=== PATIENT | female | born 1940 | race Caucasian/White ===

== ENCOUNTER 2017-06-06 17:40 | Emergency (ER) | payer OTHER ==
[2017-06-06 17:46] VITALS: BP 156/82; PULSE 85; TEMP 98; BMI 27.1
--- NOTE | 2017-06-06 17:52 | PDOC ---
History of Present Illness - History of Present Illness Initial Comments: 06/06/17 17:51 Ms. Ortiz is a 77 yo female with a significant past medical history of DM, hypothyroid disorder, and GERD who presents to the emergency department complaining of a fish bone stuck in her throat since 1529. Per history she was eating fish soup and swallowed a fish bone. The patient denies chest pain, shortness of breath, headache and dizziness. Denies fever, chills, nausea, vomit, diarrhea and constipation. Denies dysuria, frequency, urgency and hematuria. Allergies: Past surgical history: Appendectomy, cholecystectomy, c-sections <Benedict Mckenna - Last Filed: 06/06/17 19:17> <Pal Melo - Last Filed: 06/06/17 20:30> - General Chief Complaint: Foreign Body (FB) Stated Complaint: FISH BONE STUCK IN THROAT Time Seen by Provider: 06/06/17 17:51 Past History - Past Medical History Diabetes: Yes (IDDM) Thyroid Disease: Yes Other medical history: SCIATICA - Surgical History Abdominal Surgery: Yes (ABD HERNIA) Appendectomy: Yes Cholecystectomy: Yes - Suicide/Smoking/Psychosocial Hx Smoking History: Never smoked Information on smoking cessation initiated: No Hx Alcohol Use: No Drug/Substance Use Hx: No Substance Use Type: None <Benedict Mckenna - Last Filed: 06/06/17 19:17> <Pal Melo - Last Filed: 06/06/17 20:30> - Past Medical History Allergies/Adverse Reactions: Allergies Allergy/AdvReac Type Severity Reaction Status Date / Time Penicillins Allergy Verified 06/06/17 17:42 Review of Systems - Review of Systems Comments:: 06/06/17 17:51 GENERAL/CONSTITUTIONAL: No fever or chills. No weakness. HEAD, EYES, EARS, NOSE AND THROAT: +Current sore throat with some blood spit up in the parking lot. No change in vision. No ear pain or discharge. CARDIOVASCULAR: No chest pain or shortness of breath RESPIRATORY: No cough, wheezing, or hemoptysis. GASTROINTESTINAL: No nausea, vomiting, diarrhea or constipation. GENITOURINARY: No dysuria, frequency, or change in urination. MUSCULOSKELETAL: No joint or muscle swelling or pain. No neck or back pain. SKIN: No rash NEUROLOGIC: No headache, vertigo, loss of consciousness, or change in strength/ sensation. ENDOCRINE: No increased thirst. No abnormal weight change HEMATOLOGIC/LYMPHATIC: No anemia, easy bleeding, or history of blood clots. ALLERGIC/IMMUNOLOGIC: No hives or skin allergy. <Benedict Mckenna - Last Filed: 06/06/17 19:17> *Physical Exam - Vital Signs Last Vital Signs Temp Pulse Resp BP Pulse Ox 98.0 F 85 18 156/82 100 06/06/17 17:43 06/06/17 17:43 06/06/17 17:43 06/06/17 17:43 06/06/17 17:43 - Physical Exam Comments: 06/06/17 17:51 GENERAL: Awake, alert, and fully oriented, in no acute distress HEAD: No signs of trauma, normocephalic, atraumatic EYES: PERRLA, EOMI, sclera anicteric, conjunctiva clear ENT: Auricles normal inspection, hearing grossly normal, nares patent, oropharynx clear without exudates. Moist mucosa NECK: Normal ROM, supple, no lymphadenopathy, JVD, or masses LUNGS: No distress, speaks full sentences, clear to auscultation bilaterally HEART: Regular rate and rhythm, normal S1 and S2, no murmurs, rubs or gallops, peripheral pulses normal and equal bilaterally. ABDOMEN: Soft, nontender, normoactive bowel sounds. No guarding, no rebound. No masses EXTREMITIES: Normal inspection, Normal range of motion, no edema. No clubbing or cyanosis. NEUROLOGICAL: Cranial nerves II through XII grossly intact. Normal speech, normal gait, no focal sensorimotor deficits SKIN: Warm, Dry, normal turgor, no rashes or lesions noted. <Benedict Mckenna - Last Filed: 06/06/17 19:17> - Vital Signs Last Vital Signs Temp Pulse Resp BP Pulse Ox 98.0 F 85 18 156/82 100 06/06/17 17:43 06/06/17 17:43 06/06/17 17:43 06/06/17 17:43 06/06/17 17:43 <Pal Melo - Last Filed: 06/06/17 20:30> ED Treatment Course - Medications Given in the ED: ED Medications Discontinued Medications Generic Name Dose Route Start Last Admin Trade Name Tomasz PRN Reason Stop Dose Admin Lidocaine HCl 60 ml 06/06/17 18:08 06/06/17 18:16 Xylocaine 2% Viscous Oral - MM 06/06/17 18:09 30 ml ONCE ONE Administration <Pal Melo - Last Filed: 06/06/17 20:30> Medical Decision Making - Medical Decision Making 06/06/17 18:40 Patient presents with acute pain from "fish bone" in throat. Oral lidocaine ordered for symptomatic relief. CT neck ordered to confirm foreign body. EKG/ CXR ordered as well in preparation for possible surgery. 06/06/17 19:18 Pt. signed out to Dr. Melo for further work-up. <Benedict Mckenna - Last Filed: 06/06/17 19:17> *DC/Admit/Observation/Transfer <Benedict Mckenna - Last Filed: 06/06/17 19:17> - Discharge Dispostion Admit: Yes <Pal Melo - Last Filed: 06/06/17 20:30> Diagnosis at time of Disposition: Foreign body - Referrals Referrals: Celio Domingo MD [Primary Care Provider] -
[2017-06-06] MEDS ORDERED: LIDOCAINE VISCOUS 2% ORAL/TOP 20 ML UNIT-DOSE CUP MM ONE (18:08)
[2017-06-06] MEDS ORDERED: LIDOCAINE VISCOUS 2% ORAL/TOP 20 ML UNIT-DOSE CUP ONE (18:12)
--- NOTE | 2017-06-06 19:23 | PDOC ---
*Physical Exam - Vital Signs Last Vital Signs Temp Pulse Resp BP Pulse Ox 98.0 F 85 18 156/82 100 06/06/17 17:43 06/06/17 17:43 06/06/17 17:43 06/06/17 17:43 06/06/17 17:43 ED Treatment Course - LABORATORY CBC & Chemistry Diagram: 06/06/17 20:30 - Medications Given in the ED: ED Medications Discontinued Medications Generic Name Dose Route Start Last Admin Trade Name Tomasz PRN Reason Stop Dose Admin Lidocaine HCl 60 ml 06/06/17 18:08 06/06/17 18:16 Xylocaine 2% Viscous Oral - MM 06/06/17 18:09 30 ml ONCE ONE Administration Medical Decision Making - Medical Decision Making 06/06/17 19:22 7 yo female with a significant past medical history of DM, hypothyroid disorder , and GERD who presents to the emergency department complaining of a fish bone stuck. Pending CT soft tissue neck 06/06/17 19:30 CT soft tissue neck- 1 cm linear like density extending from left lateral aspect of the epiglottis into the left lateral wall of the hypopharynx between the level of the vallecula and the piriform sinus. 06/06/17 20:[address] Patiño. Patient needs to go to OR. 06/06/17 20:14 Call placed to OR to set up room 06/06/17 21:38 Dr. Escamilla performed procedure in ED. Patient tolerated removal of fishbone well. Will PO challenge the patient and if patient tolerates, she is stable for d/c 06/06/17 21:49 Patient tolerated food. Will d/c patient home. *DC/Admit/Observation/Transfer Diagnosis at time of Disposition: Foreign body Foreign body in throat Qualifiers: Encounter type: initial encounter Qualified Code(s): T17.208A - Unspecified foreign body in pharynx causing other injury, initial encounter - Discharge Dispostion Disposition: HOME Condition at time of disposition: Stable Admit: No - Referrals Referrals: Celio Domingo MD [Primary Care Provider] - - Patient Instructions Printed Discharge Instructions: DI for Foreign Body, Swallowed-Adult Additional Instructions: Follow up with your primary care provider within 1 week. If you have chest pain, shortness of breath, or any new/worsening symptoms please come back to the hospital immediately. - Post Discharge Activity
--- NOTE | 2017-06-06 21:26 | CON.ENT ---
Consult Consult Specialty:: ENT Reason for Consultation:: foreign body throat - History of Present Illness Chief Complaint: sore throat History of Present Illness: Was eating fish this afternoon for lunch, developed stabbing pain in left throat. Since then, hard to swallow. Spitting. CT Neck done in ER showing radioopaque FB in vallecula. - History Source History Provided By: Patient Limitations to Obtaining History: No Limitations - Past Medical History Endocrine: Yes: Diabetes Mellitus, Hypothyroidism - Alcohol/Substance Use Hx Alcohol Use: No - Smoking History Smoking history: Never smoked Home Medications - Allergies Allergies/Adverse Reactions: Allergies Allergy/AdvReac Type Severity Reaction Status Date / Time Penicillins Allergy Verified 06/06/17 17:42 - Home Medications Home Medications: Ambulatory Orders NK [No Known Home Medication] 06/06/17 Review of Systems - Review of Systems HENT: reports: Difficult Swallowing Physical Exam-ENT Vital Signs: Vital Signs Temperature 98.0 F 06/06/17 17:43 Pulse Rate 85 06/06/17 17:43 Respiratory Rate 18 06/06/17 17:43 Blood Pressure 156/82 06/06/17 17:43 O2 Sat by Pulse Oximetry (%) 100 06/06/17 17:43 Constitutional: Yes: Well Nourished, Anxious, Other (spitting every ~2 minutes into a bag. clear saliva. no stridor/stertor. nml voice.) Head: Yes: WNL Face: Yes: WNL Eyes: Yes: WNL Nose: Yes: WNL Oral/Pharynx: Yes: Other (edentulous. FOM soft, flat. Tonsils 1+/recessed. No FB seen. Widely patent) Outer Ear: Yes: WNL Ear Canal: Yes: Cerumen Neck: Yes: Supple, Other (no edema, swelling, or discoloration) Neurological: Yes: Other (CN3-7,11,12 intact, symmetrical) Imaging - Results Cat Scan: Report Reviewed, Image Reviewed Other: Other (1. Flexible Fiberoptic Laryngoscopy 2. Removal FB Throat Explained rbla to patient, all questions answered, consent obtained. Pt and [id number] aware will try in ER, and if unable to retrieve FB then will go to OR. FFL Findings: 1. Unremarkable N/P. 2. There is a thick fishbone in valleculae. No gross lesions/masses in pyriforms. 3. TVCs mobile, symmetrical. Removal of FB: Time out peformed. With Flexible Fiberoptic Laryngoscope in Position to assist in removal, sourcing assistant retracted tongue with 4x4 gauze. A curved samira clamp was inserted through the oral cavity to oropharynx. The FB was grasped and removed completely. Immediate relief noted by patient. She felt much better and was able to swallow, gave MD cummings. FFL ensured no residual FB seen.) Problem List - Problems (1) Foreign body Code(s): [id number] - (2) Foreign body in throat Assessment/Plan: Fishbone in vallecula since this afternoon. Removed successfully. Patient very pleased. As long as tolerating PO's and feels well, okay to discharge Checked on patient twenty minutes after removal, doing well without complaints. No evidence of vascular damage. *Of note, pt refuses blood products due to catholic convictions. Refusal signed on consent form after disc r/b/l/a of the procedure. She is aware that potentially life-saving blood products will be withheld if needed, which could result in . Pt illiterate but was explained in detail in kosovan. daughter- in-law witnesses* Code(s): T17.208A - UNSP FOREIGN BODY IN PHARYNX CAUSING OTH INJURY, INIT ENCNTR Qualifiers: Encounter type: initial encounter Qualified Code(s): T17.208A - Unspecified foreign body in pharynx causing other injury, initial encounter; T17.208A - Unspecified foreign body in pharynx causing other injury, initial encounter (3) Dysphagia Code(s): R13.10 - DYSPHAGIA, UNSPECIFIED
--- NOTE | 2017-06-07 22:26 | EKG ---
Test Reason : Blood Pressure : / mmHG Vent. Rate : 081 BPM Atrial Rate : 081 BPM P-R Int : 140 ms QRS Dur : 088 ms QT Int : 366 ms P-R-T Axes : 035 002 050 degrees QTc Int : 425 ms NORMAL SINUS RHYTHM BASELINE ARTIFACT NONSPECIFIC T WAVE ABNORMALITY NO PREVIOUS ECGS AVAILABLE REPEAT EKG IF CLINICALLY INDICATED Confirmed by HUGO BREAUX MD ([id number]) on 06/07/2017 10:26:03 PM Referred By: Confirmed By:HUGO BREAUX MD
== END 2017-06-06 22:21 | disposition home or self-care (01) ==
LOC: JER 17:40
DX: T17.228A Food in pharynx causing other injury, initial encounter (principal); E11.9 Type 2 diabetes mellitus without complications; E07.9 Disorder of thyroid, unspecified; K21.9 Gastro-esophageal reflux disease without esophagitis
CPT/HCPCS: 36415; 70490-TC; 71010-TC; 93005; 93010; 99283-25

== ENCOUNTER 2020-04-06 17:09 | Inpatient (IN) | payer MEDICARE, OTHER ==
[2020-04-06 17:18] VITALS: BMI 25.0
--- NOTE | 2020-04-06 17:35 | PDOC ---
History of Present Illness - General Chief Complaint: Chest Pain Stated Complaint: CHEST PAIN Time Seen by Provider: 04/06/20 17:34 - History of Present Illness Initial Comments: 04/06/20 19:34 79 y/o F hx of diabetes (insulin dependent), htn, hypothyroidism presents to the ED with 2 days of chest pain. Pt reports pain is right sided and 6/10 in severity. Intermittent throught out the day.Pain is worse when she lies down, but there has been no recent illness. pt has no associated nausea, vomiting, diaphoresis or shortness of breath. Of note, pt fell 1 wk ago and has had right sided shoulder,neck and headache since then. Headache has been persistent for the last week. pain occasionally relieved with tylenol, but always returns. pt was ambulatory after fall incident and was not evaluated at the hospital at that time. PMHx: as noted above ROS: as noted SHx: Denies Etoh, IVDA, tobacco use Allergies: NKDA ROS: GENERAL/CONSTITUTIONAL: No fever or chills. No weakness. HEAD, EYES, EARS, NOSE AND THROAT: No change in vision. No ear pain or discharge. No sore throat. CARDIOVASCULAR: No chest pain or shortness of breath RESPIRATORY: No cough, wheezing, or hemoptysis. GASTROINTESTINAL: No nausea, vomiting, diarrhea or constipation. GENITOURINARY: No dysuria, frequency, or change in urination. MUSCULOSKELETAL: No joint or muscle swelling or pain. No neck or back pain. SKIN: No rash NEUROLOGIC: No headache, vertigo, loss of consciousness, or change in strength/sensation. ENDOCRINE: No increased thirst. No abnormal weight change HEMATOLOGIC/LYMPHATIC: No anemia, easy bleeding, or history of blood clots. ALLERGIC/IMMUNOLOGIC: No hives or skin allergy. PE: GENERAL: Awake, alert, and fully oriented, in no acute distress HEAD: No signs of trauma, normocephalic, atraumatic EYES: PERRLA, EOMI, sclera anicteric, conjunctiva clear ENT: Auricles normal inspection, hearing grossly normal, nares patent, orophary nx clear without exudates. Moist mucosa NECK: Normal ROM, supple, no lymphadenopathy, JVD, or masses LUNGS: No distress, speaks full sentences, clear to auscultation bilaterally HEART: Regular rate and rhythm, normal S1 and S2, no murmurs, rubs or gallops, peripheral pulses normal and equal bilaterally. ABDOMEN: Soft, nontender, normoactive bowel sounds. No guarding, no rebound. No masses EXTREMITIES : Normal inspection, Normal range of motion, no edema. No clubbing or cyanosis NEUROLOGICAL: Cranial nerves II through XII grossly intact. Normal speech, normal gait, no focal sensorimotor deficits SKIN: Warm, Dry, normal turgor, no rashes or lesions noted 04/06/20 19:40 Past History - Medical History Allergies/Adverse Reactions: Allergies Allergy/AdvReac Type Severity Reaction Status Date / Time Penicillins Allergy Verified 04/06/20 17:18 Home Medications: Ambulatory Orders Ergocalciferol [Vitamin D2] 50,000 unit PO ONCE 04/06/20 Gabapentin 300 mg PO DAILY 04/06/20 Glimepiride 4 mg PO DAILY 04/06/20 Levothyroxine [Synthroid -] 50 mcg PO DAILY 04/06/20 Losartan Potassium 25 mg PO DAILY 04/06/20 Metformin HCl [Glucophage] 1,000 mg PO BID 04/06/20 Simvastatin 20 mg PO DAILY 04/06/20 COPD: No Diabetes: Yes (IDDM) HTN: Yes Thyroid Disease: Yes - Surgical History Abdominal Surgery: Yes (ABD HERNIA) Appendectomy: Yes Cholecystectomy: Yes - Psycho-Social/Smoking History Smoking History: Never smoked - Substance Abuse Hx (Audit-C & DAST Scrn) How often the patient has a drink containing alcohol: Never Score: In Men: 4 or > Positive; In Women: 3 or > Positive: 0 Screen Result (Pos requires Nsg. Audit-10AR): Negative *Physical Exam - Vital Signs Last Vital Signs Temp Pulse Resp BP Pulse Ox 98 F 73 18 143/67 99 04/06/20 17:16 04/06/20 17:16 04/06/20 17:16 04/06/20 17:16 04/06/20 17:16 Heart Score/ECG Review - History History: Slightly suspicious - Electrocardiogram EKG: Non specific repolarization disturbance - Age Age: >/= 65 - Risk Factors Risk Factors Heart Score: Yes Hx Hypercholesterolemia, Yes Hx Hypertension, Yes Hx Diabetes Based on the list above the patient has:: >/=3 risk factors or Hx atherosclerotic disease - Troponin Troponin: </= normal limit - Score Heart Score - Total: 5 ED Treatment Course - LABORATORY CBC & Chemistry Diagram: 04/06/20 18:35 04/06/20 18:35 Medical Decision Making - Medical Decision Making 04/06/20 19:39 79 y/o F hx of diabetes (insulin dependent), htn, hypothyroidism presents to the ED with 2 days of chest pain. Pt reports pain is right sided and 6/10 in severity. ddx; acs, subdural hematoma, pnemonia, pericarditis.less likely p.e, pn 04/06/20 19:40 labs, ekg, chest x-ray heart score 5 04/06/20 19:42 EXAM: CT thoracic spine without contrast HISTORY:Fall. Rule out hematoma. COMPARISON: None. FINDINGS: Thoracic spine demonstrates normal alignment. Moderate degenerative changes noted. No acute thoracic spine fracture or dislocation. No visible hematoma. Evidence for prior granulomatous disease EXAM: CT head without contrast IMAGES: 220 DATE OF EXAM: 2020-04-06 18:58:54 REASON FOR EXAM: Fall COMPARISON: None. FINDINGS: There is cerebral atrophy. Chronic microvascular ischemic changes are noted. No acute intracranial hemorrhage or acute infarction. The visualized aspect of the paranasal sinuses and mastoid air cells are unremarkable. no acute fracture. EKG: NSR , normal qt , no st elevation. HIP x-rays FINDINGS: Right hip: No acute fracture or dislocation. Left hip: No acute fracture or dislocation. AP pelvis: No acute fracture or dislocation. Extensive vascular calcifications. chest x-ray Chronic lung changes. No acute cardiopulmonary disease. No pneumothorax or f racture. No radiopaque foreign body. 04/06/20 21:33 Discharge - Discharge Information Problems reviewed: Yes Clinical Impression/Diagnosis: Chest pain - Follow up/Referral - Patient Discharge Instructions - Post Discharge Activity
[2020-04-06] MEDS ORDERED: ASPIRIN 81 MG CHEWABLE TABLETS PO ONE ×2 (18:11→21:23)
[2020-04-06] MEDS ORDERED: ACETAMINOPHEN 1000 MG/100 ML VIAL (NON FORMULARY) IVPB ONE (18:11)
[2020-04-06] MEDS ORDERED: ASPIRIN 81 MG CHEWABLE TABLETS ONE ×2 (18:32→21:55)
[2020-04-06] MEDS ORDERED: ACETAMINOPHEN INJECTION 100 ML IVPB ONE (18:32)
--- NOTE | 2020-04-06 18:39 | PDOC ---
Attending Attestation - Resident Resident Name: PamAdrienneJesus Yepez - HPI HPI: 04/06/20 18:50 PT presents to the ED complaining of a two day history of substernal chest pain made worse by lying flat and relieved by sitting. Denies shortness of breath, nausea or vomiting. Also complaining of mild frontal headache that has been persistent since mechanical fall one week ago. Denies LOC at the time of the fall. Raven has been ambualtory and conducting her usual activities since the fall. - Physicial Exam PE: 04/06/20 19:19 agree with resident exam. PAteint is alert and in NAD. CV: rrr no m/r/g Pulm: cTA b/l abdomen: soft, non tender, non distended without guarding or rebound. - Medical Decision Making 04/06/20 19:19 Pt presents to the eD complaining of chest pain that has been intermittent for t wo days. EKG shows no evidence of ischemia. Differential of cP includes ACS, muscular pain, less likely pericarditis or rib fx. Will check labs and admit to medicine for r/o ACS. Will check CT head to rule out intracranial bleed. Discharge - Discharge Information Problems reviewed: Yes Clinical Impression/Diagnosis: Chest pain Condition: Stable Disposition: HOME - Admission Yes - Follow up/Referral - Patient Discharge Instructions - Post Discharge Activity
[2020-04-06 18:52] LABS: INR 0.97 (0.83-1.09); PROTHROMBIN TIME (PATIENT) 11.4 SEC (9.7-13.0)
[2020-04-06 18:53] LABS: EOS % 3.4 % (0-4.5); HEMATOCRIT 34.8 % (32.4-45.2); HEMOGLOBIN 11.7 GM/dL (10.7-15.3); LYMPH % 27.9 % (8-40); MCHC 33.7 g/dl (32.0-36.0); MEAN CELL VOLUME 85.9 fl (80-96); MEAN PLT VOLUME 10.1 fl (7.5-11.1); MONO % 6.7 % (3.8-10.2); RBC 4.05 M/mm3 (3.60-5.2); RDW 13.2 % (11.6-15.6); WHITE BLOOD COUNT 9.7 K/mm3 (4.0-10.0)
[2020-04-06 18:55] LABS: ACTIVATED PTT 30.2 SECONDS (25.2-36.5)
[2020-04-06 19:23] LABS: ALBUMIN 3.9 g/dl (3.4-5.0); ALK PHOS 107 U/L (45-117); ANION GAP 7 MMOL/L (8-16); BILIRUBIN,TOTAL 0.6 mg/dL (0.2-1); BLOOD UREA NITROGEN 14.7 mg/dL (7-18); CALCIUM 8.6 mg/dL (8.5-10.1); CHLORIDE 100 mmol/L (98-107); CO2 29 mmol/L (21-32); CREATININE 0.7 mg/dL (0.55-1.3); GLUCOSE,RANDOM 70 mg/dL (74-106); POTASSIUM 4.7 mmol/L (3.5-5.1); SGOT/AST 27 U/L (15-37); SGPT/ALT 32 U/L (13-61); SODIUM 136 mmol/L (136-145); TOT PROT 7.2 g/dl (6.4-8.2)
[2020-04-06 19:29] LABS: PLATELET COUNT 129 K/MM3 (134-434)
--- NOTE | 2020-04-06 21:22 | HP ---
CHIEF COMPLAINT: PCP: HISTORY OF PRESENT ILLNESS: 79 y/o F hx of diabetes (insulin dependent), htn, hypothyroidism, hl presents to the ED with 2 days of chest pain. Pain is intermittent in nature, radiates on her right neck and right chest region, goes o he back at times. No associated vomiting but had some nausea erlier this am. Currently pain is better after getting meds in the ed. Of note, pt reports having a fall last week-- daughter states she tripped over something while walking and fell onto her right side. No syncope/loc. No chest pain, shortness of breath or palpitations prior to the fall Pt denies any pleuritic pain currently PMHx: as noted above ROS: as noted SHx: Denies Etoh, IVDA, tobacco use Allergies: NKDA ER course was notable for: (1) pain to the right chest region (2) (3) Recent Travel: Denies PAST MEDICAL HISTORY: htn, hypothyroidism, iddm, hl PAST SURGICAL HISTORY: Denies Social History: Smoking: Denies Alcohol: Denies Drugs: Denies Allergies Penicillins Allergy (Verified 04/06/20 17:18) HOME MEDICATIONS: Home Medications Medication Instructions Recorded Ergocalciferol [Vitamin D2] 50,000 unit PO ONCE 04/06/20 Gabapentin 300 mg PO DAILY 04/06/20 Glimepiride 4 mg PO DAILY 04/06/20 Levothyroxine [Synthroid -] 50 mcg PO DAILY 04/06/20 Losartan Potassium 25 mg PO DAILY 04/06/20 Metformin HCl [Glucophage] 1,000 mg PO BID 04/06/20 Simvastatin 20 mg PO DAILY 04/06/20 REVIEW OF SYSTEMS CONSTITUTIONAL: Absent: fever, chills, diaphoresis, generalized weakness, malaise, loss of appetite, weight change HEENT: Absent: rhinorrhea, nasal congestion, throat pain, throat swelling, difficulty swallowing, mouth swelling, ear pain, eye pain, visual changes CARDIOVASCULAR: POS RIGHT chest pain, syncope, palpitations, irregular heart rate, lightheadedness, peripheral edema RESPIRATORY: Absent: cough, shortness of breath, dyspnea with exertion, orthopnea, wheezing, stridor, hemoptysis GASTROINTESTINAL: Absent: abdominal pain, abdominal distension, nausea, vomiting, diarrhea, constipation, melena, hematochezia GENITOURINARY: Absent: dysuria, frequency, urgency, hesitancy, hematuria, flank pain, genital pain MUSCULOSKELETAL: Absent: myalgia, arthralgia, joint swelling, back pain, POS RIGHT SIDED neck pain SKIN: Absent: rash, itching, pallor HEMATOLOGIC/IMMUNOLOGIC: Absent: easy bleeding, easy bruising, lymphadenopathy, frequent infections ENDOCRINE: Absent: unexplained weight gain, unexplained weight loss, heat intolerance, cold intolerance NEUROLOGIC: Absent: headache, focal weakness or paresthesias, dizziness, unsteady gait, seizure, mental status changes, bladder or bowel incontinence PSYCHIATRIC: Absent: anxiety, depression, suicidal or homicidal ideation, hallucinations. PHYSICAL EXAMINATION Vital Signs - 24 hr 04/06/20 17:16 Temperature 98 F Pulse Rate 73 Respiratory 18 Rate Blood Pressure 143/67 O2 Sat by Pulse 99 Oximetry (%) GENERAL: Awake, alert, and fully oriented, in no acute distress. HEAD: Normal with no signs of trauma. EYES: extraocular movements intact, sclera anicteric, conjunctiva clear. No lid lag. EARS, NOSE, THROAT: Ears normal, nares patent, oropharynx clear without exudates. Moist mucous membranes. NECK: Normal range of motion, supple without lymphadenopathy, JVD, or masses. POS RIGHT NECK PAIN TO PALPATION LUNGS: Breath sounds equal, clear to auscultation bilaterally. No wheezes, and no crackles. No accessory muscle use. HEART: Regular rate and rhythm, normal S1 and S2 without murmur, rub or gallop. ABDOMEN: Soft, nontender, not distended, normoactive bowel sounds, no guarding, no rebound, no masses. No hepatomegaly or splenomegaly. MUSCULOSKELETAL: Normal range of motion at all joints. No bony deformities or tenderness. No CVA tenderness. POS TENDERNESS TO PALPATION RIGHT CHEST REGION UPPER EXTREMITIES: 2+ pulses, warm, well-perfused. No cyanosis. No clubbing. No peripheral edema. LOWER EXTREMITIES: 2+ pulses, warm, well-perfused. No calf tenderness. No peripheral edema. NEUROLOGICAL: Cranial nerves II-XII intact. Normal speech. Normal gait. PSYCHIATRIC: Cooperative. Good eye contact. Appropriate mood and affect. SKIN: Warm, dry, normal turgor, no rashes or lesions noted, normal capillary refill. Laboratory Results - last 24 hr 04/06/20 04/06/20 04/06/20 18:35 18:35 18:35 WBC 9.7 RBC 4.05 Hgb 11.7 Hct 34.8 MCV 85.9 MCH 29.0 MCHC 33.7 RDW 13.2 Plt Count 129 L MPV 10.1 Absolute Neuts (auto) 5.5 Neutrophils % 57.0 Lymphocytes % 27.9 Monocytes % 6.7 Eosinophils % 3.4 Basophils % 5.0 H Nucleated RBC % 0 Platelet Comment PT with INR 11.40 INR 0.97 PTT (Actin FS) 30.2 Sodium 136 Potassium 4.7 Chloride 100 Carbon Dioxide 29 Anion Gap 7 L BUN 14.7 Creatinine 0.7 Est GFR (CKD-EPI)AfAm 96.18 Est GFR (CKD-EPI)NonAf 82.99 Random Glucose 70 L Calcium 8.6 Total Bilirubin 0.6 AST 27 ALT 32 Alkaline Phosphatase 107 Troponin I < 0.02 C-Reactive Protein < 0.3 Total Protein 7.2 Albumin 3.9 EKG: NSR@72BPM HEAD CT/ CERVICAL CT -- PENDING CXR: PENDING ASSESSMENT/PLAN: 79 Y/O FEMALE WITH THE ABOVE MED HX ADMITTED WITH CHEST PAIN *CHEST PAIN - HAS MULTIPLE RISK FACTORS FOR CAD PAIN COTNROL ADMIT TO TELE, RULE OUT ARRHYTHMIA CHECK CARDIAC ENZYMES S/P ASA IN ED, CONT TOMORROW, CONT STATIN AND BB ?MUSCULOSKELETAL? PAIN REPRODUCIBLE ON EXAM TODAY POSSIBLY FROM FALL IF NOT BETTER, CHECK 2D ECHO, RIB XRAYS *HTN - CONT LOSARTAN AND BB *IDDM - HOLD ORAL AGENTS, CONT ISS WITH BGMS CHECK HBA1C *HL - CONT STATIN, CHECK LIPIDS IN AM *DVT PROPHY SQ HEPARIN Family Medical History Family History: Denies Problem List - Problem (1) Chest pain Code(s): R07.9 - CHEST PAIN, UNSPECIFIED Visit type - Medication Review Med list reviewed for High Risk Meds patients 65 and older: Yes - Emergency Visit Emergency Visit: Yes Care time: The patient presented to the Emergency Department on the above date and was hospitalized for further evaluation of their emergent condition. - New Patient This patient is new to me today: Yes Date on this admission: 04/06/20 - Critical Care Critical Care patient: No
[2020-04-06] MEDS ORDERED: NITROGLYCERIN SUBLINGUAL 1/150 0.4 MG TAB SL PRN (21:23)
[2020-04-06] MEDS ORDERED: HEPARIN NA (PORCINE) 5,000 UNITS/ML 1ML VIAL ONE (21:55)
[2020-04-06] MEDS ORDERED: ATORVASTATIN CA 10 MG TABLET (FP) ONE (21:55)
[2020-04-06] MEDS ORDERED: PATIENT'S OWN MEDICATION (NON-FORMULARY) (Simvastatin [Simvastatin] 20 MG) PO SCH (22:00)
[2020-04-06] MEDS: HEPARIN NA (PORCINE) 5,000 UNITS/ML 1ML VIAL SQ SCH (22:07)
[2020-04-06] MEDS: ATORVASTATIN CA 10 MG TABLET (FP) PO SCH (22:07)
[2020-04-07] MEDS ORDERED: LEVOTHYROXINE NA 25 MCG TABLET (FP) ONE (06:46)
[2020-04-07] MEDS: LEVOTHYROXINE NA 50 MCG TABLET (FP) PO SCH (06:47)
[2020-04-07] MEDS ORDERED: LOSARTAN POTASSIUM 50 MG TABLET (FP) ONE (07:44)
[2020-04-07] MEDS ORDERED: GABAPENTIN 100 MG CAPSULE ONE (07:44)
[2020-04-07] MEDS ORDERED: ASPIRIN 325 MG ENTERIC COATED TABLET (FP) ONE (07:44)
[2020-04-07] MEDS ORDERED: HEPARIN NA (PORCINE) 5,000 UNITS/ML 1ML VIAL ONE (07:45)
[2020-04-07 07:47] LABS: EOS % 3.1 % (0-4.5); HEMATOCRIT 37.8 % (32.4-45.2); HEMOGLOBIN 12.7 GM/dL (10.7-15.3); LYMPH % 33.2 % (8-40); MCH 28.7 pg (25.7-33.7); MCHC 33.6 g/dl (32.0-36.0); MEAN CELL VOLUME 85.6 fl (80-96); MEAN PLT VOLUME 9.2 fl (7.5-11.1); MONO % 9.7 % (3.8-10.2); PLATELET COUNT 158 K/MM3 (134-434); RBC 4.42 M/mm3 (3.60-5.2); WHITE BLOOD COUNT 6.6 K/mm3 (4.0-10.0)
[2020-04-07 08:18] LABS: ANION GAP 5 MMOL/L (8-16); BLOOD UREA NITROGEN 12.9 mg/dL (7-18); CALCIUM 8.8 mg/dL (8.5-10.1); CHLORIDE 101 mmol/L (98-107); CHOLESTEROL 118 mg/dL (50-200); CO2 30 mmol/L (21-32); CREATININE 0.8 mg/dL (0.55-1.3); GLUCOSE,RANDOM 128 mg/dL (74-106); HDL CHOLESTEROL 51 mg/dL (40-60); LDL CHOLESTEROL (ONLY SJRH) 52 mg/dL (5-100); MAGNESIUM 2.4 mg/dL (1.8-2.4); PHOSPHOROUS 4.2 mg/dL (2.5-4.9); SODIUM 136 mmol/L (136-145); TRIGLYCERIDES 152 mg/dL (0-150)
--- NOTE | 2020-04-07 09:15 | EKG ---
Test Reason : Blood Pressure : / mmHG Vent. Rate : 072 BPM Atrial Rate : 072 BPM P-R Int : 154 ms QRS Dur : 088 ms QT Int : 382 ms P-R-T Axes : 055 014 053 degrees QTc Int : 418 ms NORMAL SINUS RHYTHM SEPTAL INFARCT , AGE UNDETERMINED ABNORMAL ECG WHEN COMPARED WITH ECG OF 06-JUN-2017 18:27, NO SIGNIFICANT CHANGE WAS FOUND Confirmed by Ritu Espino ([id number]) on 04/07/2020 9:15:17 AM Referred By: Confirmed By:Ritu Espino
[2020-04-07] MEDS: ASPIRIN 325 MG TABLET PO SCH (09:35)
[2020-04-07] MEDS: LOSARTAN POTASSIUM 25 MG TABLET PO SCH (09:37)
[2020-04-07] MEDS: GABAPENTIN 300 MG CAPSULE PO SCH (09:38)
[2020-04-07] MEDS: HEPARIN NA (PORCINE) 5,000 UNITS/ML 1ML VIAL SQ SCH ×2 (09:38→22:17)
[2020-04-07] MEDS ORDERED: LEVOTHYROXINE NA 50 MCG TABLET (FP) PO SCH (10:00)
[2020-04-07] MEDS ORDERED: SODIUM CHLORIDE 500 ML IV STA (12:13)
[2020-04-07] MEDS: INSULIN SLIDING SCALE (NOVOLOG) 1 VIAL SQ SCH ×3 (12:26→22:17)
--- NOTE | 2020-04-07 12:53 | PN ---
Teaching Attending Note Name of Resident: Krish Castillo ATTENDING PHYSICIAN STATEMENT I saw and evaluated the patient. I reviewed the resident's note and discussed the case with the resident. I agree with the resident's findings and plan as documented. SUBJECTIVE: Patient seen and examined at bedside, admitted for fall mechanical v.s. syncopal/pre-syncopal. Denies CP currently, will need cardiac workup. VSS. OBJECTIVE: Ga comfortable, AAox3, speaking in full sentences HEENT NC/AT, EOMI, neck supple, dry MM, no JVD Chest CTAB, notable kyphosis of spine, no crackles/wheezing CVS s1, S2+, LUPE+ Abd Soft, NT, ND, BS+, no CVA tenderness Ext no LE edema, no calf tenderness, no visible ulcers Neuro CN2-12 grossly intact, 5/5 power UE and LE. (c/o chronic neuropathic burning sensation RLE) Vital Signs - 24 hr 04/06/20 04/06/20 04/06/20 17:16 21:38 23:14 Temperature 98 F Pulse Rate 73 Pulse Rate [ 69 Radial] Respiratory 18 15 Rate Blood Pressure 143/67 Blood Pressure 174/69 H [Left Arm] Blood Pressure [Right Arm] O2 Sat by Pulse 99 99 99 Oximetry (%) 04/07/20 04/07/20 04/07/20 00:22 04:23 06:59 Temperature 98.3 F Pulse Rate Pulse Rate [ 61 66 71 Radial] Respiratory 15 15 16 Rate Blood Pressure Blood Pressure 159/60 145/56 L 163/71 [Left Arm] Blood Pressure [Right Arm] O2 Sat by Pulse 98 97 98 Oximetry (%) 04/07/20 04/07/20 07:23 09:30 Temperature Pulse Rate 73 Pulse Rate [ 74 Radial] Respiratory 19 18 Rate Blood Pressure 163/71 Blood Pressure [Left Arm] Blood Pressure 156/68 [Right Arm] O2 Sat by Pulse 98 Oximetry (%) Laboratory Results - last 24 hr 04/06/20 04/06/20 04/06/20 18:35 18:35 18:35 WBC 9.7 RBC 4.05 Hgb 11.7 Hct 34.8 MCV 85.9 MCH 29.0 MCHC 33.7 RDW 13.2 Plt Count 129 L MPV 10.1 Absolute Neuts (auto) 5.5 Neutrophils % 57.0 Lymphocytes % 27.9 Monocytes % 6.7 Eosinophils % 3.4 Basophils % 5.0 H Nucleated RBC % 0 Platelet Comment PT with INR 11.40 INR 0.97 PTT (Actin FS) 30.2 Sodium 136 Potassium 4.7 Chloride 100 Carbon Dioxide 29 Anion Gap 7 L BUN 14.7 Creatinine 0.7 Est GFR (CKD-EPI)AfAm 96.18 Est GFR (CKD-EPI)NonAf 82.99 POC Glucometer Random Glucose 70 L Hemoglobin A1c % Calcium 8.6 Phosphorus Magnesium Total Bilirubin 0.6 AST 27 ALT 32 Alkaline Phosphatase 107 Creatine Kinase Troponin I < 0.02 C-Reactive Protein < 0.3 Total Protein 7.2 Albumin 3.9 Triglycerides Cholesterol Total LDL Cholesterol HDL Cholesterol TSH 04/06/20 04/07/20 04/07/20 23:24 00:11 07:05 WBC 6.6 RBC 4.42 Hgb 12.7 Hct 37.8 MCV 85.6 MCH 28.7 MCHC 33.6 RDW 13.0 Plt Count 158 D MPV 9.2 Absolute Neuts (auto) 3.5 Neutrophils % 53.0 Lymphocytes % 33.2 Monocytes % 9.7 Eosinophils % 3.1 Basophils % 1.0 Nucleated RBC % 0 Platelet Comment PT with INR INR PTT (Actin FS) Sodium Potassium Chloride Carbon Dioxide Anion Gap BUN Creatinine Est GFR (CKD-EPI)AfAm Est GFR (CKD-EPI)NonAf POC Glucometer 236 Random Glucose Hemoglobin A1c % Calcium Phosphorus Magnesium Total Bilirubin AST ALT Alkaline Phosphatase Creatine Kinase 91 Troponin I < 0.02 C-Reactive Protein Total Protein Albumin Triglycerides Cholesterol Total LDL Cholesterol HDL Cholesterol TSH 04/07/20 04/07/20 04/07/20 07:05 07:05 07:52 WBC RBC Hgb Hct MCV MCH MCHC RDW Plt Count MPV Absolute Neuts (auto) Neutrophils % Lymphocytes % Monocytes % Eosinophils % Basophils % Nucleated RBC % Platelet Comment PT with INR INR PTT (Actin FS) Sodium 136 Potassium 5.0 Chloride 101 Carbon Dioxide 30 Anion Gap 5 L BUN 12.9 Creatinine 0.8 Est GFR (CKD-EPI)AfAm 81.84 Est GFR (CKD-EPI)NonAf 70.61 POC Glucometer 118 Random Glucose 128 H Hemoglobin A1c % 7.6 H Calcium 8.8 Phosphorus 4.2 Magnesium 2.4 Total Bilirubin AST ALT Alkaline Phosphatase Creatine Kinase 96 Troponin I < 0.02 C-Reactive Protein Total Protein Albumin Triglycerides 152 H Cholesterol 118 Total LDL Cholesterol 52 HDL Cholesterol 51 TSH 3.43 04/07/20 12:19 WBC RBC Hgb Hct MCV MCH MCHC RDW Plt Count MPV Absolute Neuts (auto) Neutrophils % Lymphocytes % Monocytes % Eosinophils % Basophils % Nucleated RBC % Platelet Comment PT with INR INR PTT (Actin FS) Sodium Potassium Chloride Carbon Dioxide Anion Gap BUN Creatinine Est GFR (CKD-EPI)AfAm Est GFR (CKD-EPI)NonAf POC Glucometer 191 Random Glucose Hemoglobin A1c % Calcium Phosphorus Magnesium Total Bilirubin AST ALT Alkaline Phosphatase Creatine Kinase Troponin I C-Reactive Protein Total Protein Albumin Triglycerides Cholesterol Total LDL Cholesterol HDL Cholesterol TSH Home Medications Medication Instructions Recorded Ergocalciferol [Vitamin D2] 50,000 unit PO ONCE 04/06/20 Gabapentin 300 mg PO DAILY 04/06/20 Glimepiride 4 mg PO DAILY 04/06/20 Levothyroxine [Synthroid -] 50 mcg PO DAILY 04/06/20 Losartan Potassium 25 mg PO DAILY 04/06/20 Metformin HCl [Glucophage] 1,000 mg PO BID 04/06/20 Simvastatin 20 mg PO DAILY 04/06/20 Current Medications Generic Name Dose Route Start Last Admin Trade Name Freq PRN Reason Stop Dose Admin Aspirin 325 mg 04/07/20 10:00 04/07/20 09:35 Asa - PO 325 mg DAILY YOCASTA Administration Atorvastatin Calcium 10 mg 04/06/20 22:00 04/06/20 22:07 Lipitor - PO 10 mg HS YOCASTA Administration Gabapentin 300 mg 04/07/20 10:00 04/07/20 09:38 Neurontin - PO 300 mg DAILY YOCASTA Administration Heparin Sodium (Porcine) 5,000 unit 04/06/20 22:00 04/07/20 09:38 Heparin - SQ 5,000 unit BID YOCASTA Administration Sodium Chloride 500 mls @ 500 mls/hr 04/07/20 12:13 Normal Saline - IV 04/07/20 13:12 ASDIR STA Insulin Aspart 1 vial 04/07/20 11:00 04/07/20 12:26 Novolog Vial Sliding Scale - SQ 2 units ACHS YOCASTA Administration Protocol Levothyroxine Sodium 50 mcg 04/07/20 07:00 04/07/20 06:47 Synthroid - PO 50 mcg ACBK YOCASTA Administration Losartan Potassium 25 mg 04/07/20 10:00 08/10/20 09:37 Cozaar - PO 25 mg DAILY YOCASTA Administration Nitroglycerin 0.4 mg 04/06/20 21:23 Nitrostat - SL Q5M PRN FOR CHEST PAIN ASSESSMENT AND PLAN: 79 F Mechanical v.s. syncopal fall HTN HLD Chronic neuropathy Osteoporosis Hypothyroidism T2DM Plan: Obtain orthostatics, give fluids PRN Echo/carotid doppler/A1c/TSH/lipids/RPR/B12 Cardiology evaluation, patient may need stress testing due to high CAD risk Tele monitoring DVT ppx: Heparin SC PT evaluation
--- NOTE | 2020-04-07 16:48 | PN ---
Physical Exam: SUBJECTIVE: Patient seen and examined. Pt. endorses chest pain that is reproducible on palpation. Translation services used. Pt. states she fell 4x this year. OBJECTIVE: Vital Signs Period Temp Pulse Resp BP Sys/Slaughter Pulse Ox Last 24 Hr 98 F-98.3 F 61-74 15-19 143-174/56-71 97-99 GENERAL: The patient is awake, alert, and fully oriented, in no acute distress. HEAD: Normal with no signs of trauma. EYES: Sclera anicteric, conjunctiva clear. ENT: Ears normal, nares patent, oropharynx clear without exudates, moist mucous membranes. NECK: Trachea midline, no JVD LUNGS: Breath sounds equal, clear to auscultation bilaterally, no wheezes, no crackles, no accessory muscle use. Kyphotic spine HEART: Regular rate and rhythm, S1, S2 with systolic murmur ABDOMEN: Soft, nontender, nondistended, normoactive bowel sounds, no guarding, no rebound EXTREMITIES: 2+ dorsal pedal pulses, warm, well-perfused, no edema. NEUROLOGICAL: No focal deficits, 5/5 Strength throughout. Normal speech, gait not observed. PSYCH: Normal mood, normal affect. SKIN: Warm, dry, normal turgor Laboratory Results - last 24 hr 04/06/20 04/06/20 04/06/20 18:35 18:35 18:35 WBC 9.7 RBC 4.05 Hgb 11.7 Hct 34.8 MCV 85.9 MCH 29.0 MCHC 33.7 RDW 13.2 Plt Count 129 L MPV 10.1 Absolute Neuts (auto) 5.5 Neutrophils % 57.0 Lymphocytes % 27.9 Monocytes % 6.7 Eosinophils % 3.4 Basophils % 5.0 H Nucleated RBC % 0 Platelet Comment PT with INR 11.40 INR 0.97 PTT (Actin FS) 30.2 Sodium 136 Potassium 4.7 Chloride 100 Carbon Dioxide 29 Anion Gap 7 L BUN 14.7 Creatinine 0.7 Est GFR (CKD-EPI)AfAm 96.18 Est GFR (CKD-EPI)NonAf 82.99 POC Glucometer Random Glucose 70 L Hemoglobin A1c % Calcium 8.6 Phosphorus Magnesium Total Bilirubin 0.6 AST 27 ALT 32 Alkaline Phosphatase 107 Creatine Kinase Troponin I < 0.02 C-Reactive Protein < 0.3 Total Protein 7.2 Albumin 3.9 Triglycerides Cholesterol Total LDL Cholesterol HDL Cholesterol TSH 04/06/20 04/07/20 04/07/20 23:24 00:11 07:05 WBC 6.6 RBC 4.42 Hgb 12.7 Hct 37.8 MCV 85.6 MCH 28.7 MCHC 33.6 RDW 13.0 Plt Count 158 D MPV 9.2 Absolute Neuts (auto) 3.5 Neutrophils % 53.0 Lymphocytes % 33.2 Monocytes % 9.7 Eosinophils % 3.1 Basophils % 1.0 Nucleated RBC % 0 Platelet Comment PT with INR INR PTT (Actin FS) Sodium Potassium Chloride Carbon Dioxide Anion Gap BUN Creatinine Est GFR (CKD-EPI)AfAm Est GFR (CKD-EPI)NonAf POC Glucometer 236 Random Glucose Hemoglobin A1c % Calcium Phosphorus Magnesium Total Bilirubin AST ALT Alkaline Phosphatase Creatine Kinase 91 Troponin I < 0.02 C-Reactive Protein Total Protein Albumin Triglycerides Cholesterol Total LDL Cholesterol HDL Cholesterol TSH 04/07/20 04/07/20 04/07/20 07:05 07:05 07:52 WBC RBC Hgb Hct MCV MCH MCHC RDW Plt Count MPV Absolute Neuts (auto) Neutrophils % Lymphocytes % Monocytes % Eosinophils % Basophils % Nucleated RBC % Platelet Comment PT with INR INR PTT (Actin FS) Sodium 136 Potassium 5.0 Chloride 101 Carbon Dioxide 30 Anion Gap 5 L BUN 12.9 Creatinine 0.8 Est GFR (CKD-EPI)AfAm 81.84 Est GFR (CKD-EPI)NonAf 70.61 POC Glucometer 118 Random Glucose 128 H Hemoglobin A1c % 7.6 H Calcium 8.8 Phosphorus 4.2 Magnesium 2.4 Total Bilirubin AST ALT Alkaline Phosphatase Creatine Kinase 96 Troponin I < 0.02 C-Reactive Protein Total Protein Albumin Triglycerides 152 H Cholesterol 118 Total LDL Cholesterol 52 HDL Cholesterol 51 TSH 3.43 04/07/20 12:19 WBC RBC Hgb Hct MCV MCH MCHC RDW Plt Count MPV Absolute Neuts (auto) Neutrophils % Lymphocytes % Monocytes % Eosinophils % Basophils % Nucleated RBC % Platelet Comment PT with INR INR PTT (Actin FS) Sodium Potassium Chloride Carbon Dioxide Anion Gap BUN Creatinine Est GFR (CKD-EPI)AfAm Est GFR (CKD-EPI)NonAf POC Glucometer 191 Random Glucose Hemoglobin A1c % Calcium Phosphorus Magnesium Total Bilirubin AST ALT Alkaline Phosphatase Creatine Kinase Troponin I C-Reactive Protein Total Protein Albumin Triglycerides Cholesterol Total LDL Cholesterol HDL Cholesterol TSH Active Medications Generic Name Dose Route Start Last Admin Trade Name Freq PRN Reason Stop Dose Admin Aspirin 325 mg 04/07/20 10:00 04/07/20 09:35 Asa - PO 325 mg DAILY YOCASTA Administration Atorvastatin Calcium 10 mg 04/06/20 22:00 04/06/20 22:07 Lipitor - PO 10 mg HS YOCASTA Administration Gabapentin 300 mg 04/07/20 10:00 04/07/20 09:38 Neurontin - PO 300 mg DAILY YOCASTA Administration Heparin Sodium (Porcine) 5,000 unit 04/06/20 22:00 04/07/20 09:38 Heparin - SQ 5,000 unit BID YOCASTA Administration Insulin Aspart 1 vial 04/07/20 11:00 04/07/20 12:26 Novolog Vial Sliding Scale - SQ 2 units ACHS YOCASTA Administration Protocol Levothyroxine Sodium 50 mcg 04/07/20 07:00 04/07/20 06:47 Synthroid - PO 50 mcg ACBK YOCASTA Administration Losartan Potassium 25 mg 04/07/20 10:00 04/07/20 09:37 Cozaar - PO 25 mg DAILY YOCASTA Administration Nitroglycerin 0.4 mg 04/06/20 21:23 Nitrostat - SL Q5M PRN FOR CHEST PAIN ASSESSMENT/PLAN: Pt. is a 79 y.o. F w/ PMHx. of HTN, HLD, DM(w/ peripheral neuropathy), Osteoporosis, and Hypothyroidism presents for chest pain after falling on her right side. #Syncope Pt. describes slipping on ground and falling without prodromal symptoms. Pt. endorses hitting her head and LOC, does not remember how she got up Head CT Neg. Thoracic CT Neg for acute pathology PT Echo: Impaired relaxation, EF 65% f/u Carotid Duplex f/u orthostatic VS c/w Telemetry monitoring elevated Trigs to 152 on lipid panel TSH wnl f/u Syphillis testing #HTN #HLD #DM #Hypothyroidism hold oral hypoglycemics, ISS ACHS and BGM ACHS c/w other home medications #DVT Ppx. Hep SQ Visit type - Emergency Visit Emergency Visit: Yes ED Registration Date: 04/06/20 Care time: The patient presented to the Emergency Department on the above date and was hospitalized for further evaluation of their emergent condition. - New Patient This patient is new to me today: Yes Date on this admission: 04/07/20 - Critical Care Critical Care patient: No - Discharge Referral Referred to [facility] Med P.C.: No - Medication Review Med list reviewed for High Risk Meds patients 65 and older: Yes ATTENDING PHYSICIAN STATEMENT I saw and evaluated the patient. I reviewed the resident's note and discussed the case with the resident. I agree with the resident's findings and plan as documented. SUBJECTIVE: OBJECTIVE: ASSESSMENT AND PLAN:
--- NOTE | 2020-04-07 18:03 | ECHO ---
Version: 1 Name: BELGICA GUERRERO Exam: Adult Echocardiogram Study Date: 04/07/2020, 4:12 PM Age: 79 Years MMode/2D Measurements & Calculations IVSd: 1.04 cm LVIDs: 2.38 cm LVIDd: 3.5 cm LVPWd: 0.82 cm LAV (MOD-bp): 41.0 ml ACS: 1.53 cm Ao root diam: 3.0 cm LVOT diam: 1.97 cm LA dimension: 3.2 cm Doppler Measurements & Calculations MV E max rip: 61.7 cm/sec Med E/e': 16.2 MV A max rip: 103.7 cm/sec Med Peak E' Rip: 3.8 cm/sec MV E/A: 0.60 Lat E/e': 8.8 Lat Peak E' Rip: 7.0 cm/sec Ao max P.1 mmHg GWEN(I,D): 2.05 cm Ao mean P.0 mmHg LV V1 mean: 56.6 cm/sec Ao V2 max: 123.5 cm/sec LV V1 mean P.54 mmHg AI P1/2t: 745.3 msec TR max rip: 218.1 cm/sec TR max P.1 mmHg Left Ventricle The left ventricle is normal in size. There is mild concentric left ventricular hypertrophy. The lef t ventricular ejection fraction is normal. Ejection Fraction = 60-65%. Grade I diastolic dysfunction, (abnormal relaxation pattern). Right Ventricle The right ventricle is normal in size and function. Atria Normal left and right atrial size and function. Mitral Valve The mitral valve is grossly normal. Tricuspid Valve The tricuspid valve is not well visualized, but is grossly normal. Right ventricular systolic pressu re is normal. There is mild tricuspid regurgitation. Aortic Valve There is mild to moderate aortic sclerosis.;. No hemodynamically significant valvular aortic stenosi s. Mild aortic regurgitation. Pulmonic Valve The pulmonic valve is not well visualized. Great Vessels The aortic root is normal size. Pericardium/Pleura There is no pericardial effusion. Tech Comments TDS due to poor acoustic windows. Summary Statements LV: Normal size,mild LVH,normal systolic function, EF 65%,impaired relaxation RV: Normal AV: Mildly calcified, mild AR Mild TR with normal RVSP. Ritu Espino 04/07/2020, 6:03 PM Ordering Physician: Cory Castillo Referring Physician: CORY CASTILLO Performed By: Padmini Davies
[2020-04-07] MEDS: ATORVASTATIN CA 10 MG TABLET (FP) PO SCH (22:17)
[2020-04-08] MEDS: INSULIN SLIDING SCALE (NOVOLOG) 1 VIAL SQ SCH ×2 (06:58→12:41)
[2020-04-08] MEDS: LEVOTHYROXINE NA 50 MCG TABLET (FP) PO SCH (06:58)
[2020-04-08 07:09] LABS: HEMATOCRIT 37.5 % (32.4-45.2); HEMOGLOBIN 12.4 GM/dL (10.7-15.3); MCH 28.7 pg (25.7-33.7); MEAN CELL VOLUME 86.9 fl (80-96); MEAN PLT VOLUME 9.7 fl (7.5-11.1); PLATELET COUNT 162 K/MM3 (134-434); RBC 4.31 M/mm3 (3.60-5.2); RDW 13.3 % (11.6-15.6); WHITE BLOOD COUNT 5.9 K/mm3 (4.0-10.0)
[2020-04-08 07:33] LABS: ALBUMIN 3.6 g/dl (3.4-5.0); BILIRUBIN,TOTAL 0.3 mg/dL (0.2-1); BLOOD UREA NITROGEN 14.9 mg/dL (7-18); CREATININE 0.7 mg/dL (0.55-1.3); MAGNESIUM 2.4 mg/dL (1.8-2.4); TOT PROT 7.2 g/dl (6.4-8.2)
[2020-04-08] MEDS: GABAPENTIN 300 MG CAPSULE PO SCH (09:52)
[2020-04-08] MEDS: HEPARIN NA (PORCINE) 5,000 UNITS/ML 1ML VIAL SQ SCH (09:52)
[2020-04-08] MEDS: ASPIRIN 325 MG TABLET PO SCH (09:58)
[2020-04-08] MEDS: LOSARTAN POTASSIUM 25 MG TABLET PO SCH (10:00)
[2020-04-08 11:18] VITALS: BP 135/68; PULSE 75; TEMP 97.7
[2020-04-08] MEDS ORDERED: ASPIRIN 325 MG TABLET PO SCH (11:56)
[2020-04-08] MEDS ORDERED: ACETAMINOPHEN 1000 MG/100 ML VIAL (NON FORMULARY) IVPB ONE (11:56)
--- NOTE | 2020-04-08 12:11 | DS ---
Physical Exam: SUBJECTIVE: Patient seen and examined. No acute events overnight. Pt. states she does not remember her medications or her Pharmacy. Call was placed my medical team to son who was unable to provide medication list or pharmacy. Received text from son's of medication list but no Pharmacy. OBJECTIVE: Vital Signs Period Temp Pulse Resp BP Sys/Slaughter Pulse Ox Last 24 Hr 97.1 F-97.7 F 74-82 18-20 118-154/52-70 97-97 PHYSICAL EXAM GENERAL: The patient is awake, alert, and fully oriented, in no acute distress. HEAD: Normal with no signs of trauma. EYES: PERRL, extraocular movements intact, sclera anicteric, conjunctiva clear. ENT: Ears normal, nares patent, oropharynx clear without exudates, moist mucous membranes. NECK: Trachea midline, full range of motion, supple. LUNGS: Breath sounds equal, clear to auscultation bilaterally, no wheezes, no crackles, no accessory muscle use. HEART: Regular rate and rhythm, S1, S2 without murmur, rub or gallop. ABDOMEN: Soft, nontender, nondistended, normoactive bowel sounds, no guarding, no rebound, no hepatosplenomegaly, no masses. EXTREMITIES: 2+ pulses, warm, well-perfused, no edema. NEUROLOGICAL: Cranial nerves II through XII grossly intact. Normal speech, gait not observed. PSYCH: Normal mood, normal affect. SKIN: Warm, dry, normal turgor, no rashes or lesions noted. LABS Laboratory Results - last 24 hr 04/06/20 04/07/20 04/07/20 23:25 12:19 17:10 WBC RBC Hgb Hct MCV MCH MCHC RDW Plt Count MPV Sodium Potassium Chloride Carbon Dioxide Anion Gap BUN Creatinine Est GFR (CKD-EPI)AfAm Est GFR (CKD-EPI)NonAf POC Glucometer 191 233 Random Glucose Calcium Phosphorus Magnesium Total Bilirubin AST ALT Alkaline Phosphatase Total Protein Albumin Triglycerides Cholesterol Total LDL Cholesterol HDL Cholesterol TSH Syphilis Serology COVID-19 ([facility]) Not detected 04/07/20 04/08/20 04/08/20 22:00 05:40 05:40 WBC RBC Hgb Hct MCV MCH MCHC RDW Plt Count MPV Sodium 137 Potassium 5.0 Chloride 102 Carbon Dioxide 30 Anion Gap 5 L BUN 14.9 Creatinine 0.7 Est GFR (CKD-EPI)AfAm 96.18 Est GFR (CKD-EPI)NonAf 82.99 POC Glucometer 175 Random Glucose 159 H Calcium 9.0 Phosphorus 4.0 Magnesium 2.4 Total Bilirubin 0.3 AST 25 ALT 30 Alkaline Phosphatase 115 Total Protein 7.2 Albumin 3.6 Triglycerides 131 Cholesterol 126 Total LDL Cholesterol 59 HDL Cholesterol 52 TSH 3.98 H Syphilis Serology Non-reactive COVID-19 ([facility]) 04/08/20 04/08/20 04/08/20 05:40 06:37 11:23 WBC 5.9 RBC 4.31 Hgb 12.4 Hct 37.5 MCV 86.9 MCH 28.7 MCHC 33.0 RDW 13.3 Plt Count 162 MPV 9.7 Sodium Potassium Chloride Carbon Dioxide Anion Gap BUN Creatinine Est GFR (CKD-EPI)AfAm Est GFR (CKD-EPI)NonAf POC Glucometer 153 145 Random Glucose Calcium Phosphorus Magnesium Total Bilirubin AST ALT Alkaline Phosphatase Total Protein Albumin Triglycerides Cholesterol Total LDL Cholesterol HDL Cholesterol TSH Syphilis Serology COVID-19 ([facility]) HOSPITAL COURSE: Date of Admission:04/06/20 Date of Discharge: 04/08/20 Pt. is a 79 y.o. F w/ PMHx. of HTN, HLD, DM(w/ peripheral neuropathy), Osteoporosis, and Hypothyroidism presents for chest pain after falling on her right side. Pt. had Thoracic Spine CT, Head CT, B/L hip X-rays and CXR that was negative for acute pathology. Pt. had Carotid Doppler which was negative for acute pathology. Echo showed EF 65% and mild relaxation impairment. Pt. was observed on telemetry which was unremarkable. Pt. was seen by Physical Therapy where Pt. walked 100 ft with minimal assistance. Pt. was recommended shower chair and walker. Pt. agreed to outpatient physical therapy once following up with their PCP. Hospital course discussed and agreed upon with Pt. and medical staff. Follow up as detailed below. Minutes to complete discharge: 35 Discharge Summary Problems reviewed: Yes Reason For Visit: CHEST PAIN Current Active Problems Chest pain (Acute) Condition: Stable - Instructions Diet, Activity, Other Instructions: You came in for pain in your chest that happened after a mechanical fall. we imaged your head, neck, the pine of your chest and your hips. We did not find any fractures. We imaged your heart and did not find anything immediately wrong. We observed you on telemetry. We have prescribed you a shower chair and a walker. Please use these items to decrease you risk of falling Please continue taking your home medications as they were prescribed. Please follow up with your PCP within 1 week. Please discuss starting Aspirin for primary prevention and switching from Glimepiride to another medication to treat your diabetes. Please also discuss starting Physical Therapy at that time. Please follow up with your work force advisor within 1 week. Please return to the ED if you are having worsening chest pain, shortness of breath, dizziness, lightheadedness or any other concerning symptoms. Referrals: Cari Castro MD [Primary Care Provider] - Disposition: HOME - Home Medications Comprehensive Discharge Medication List: Ambulatory Orders Ergocalciferol [Vitamin D2] 50,000 unit PO ONCE 04/06/20 Gabapentin 300 mg PO DAILY 04/06/20 Glimepiride 4 mg PO DAILY 04/06/20 Levothyroxine [Synthroid -] 25 mcg PO DAILY 04/06/20 Losartan Potassium 25 mg PO DAILY 04/06/20 Metformin HCl [Glucophage] 1,000 mg PO BID 04/06/20 Simvastatin 20 mg PO DAILY 04/06/20 Cyanocobalamin [Vitamin B12 -] 1,000 mcg PO DAILY 04/08/20 Folic Acid 1 mg PO DAILY 04/08/20 Insulin Glargine,Hum.rec.anlog [Zayda Hdez U-100] 04/08/20 Miscellaneous Medical Supply [Outpatient Order] 1 [place] [place]20 Miscellaneous Medical Supply [Outpatient Order] 1 each [place] [place] Omeprazole 20 mg PO DAILY 04/08/20 This patient is new to me today: No Emergency Visit: No Critical Care patient: No - Discharge Referral Referred to [facility] No ATTENDING PHYSICIAN STATEMENT I saw and evaluated the patient. I reviewed the resident's note and discussed the case with the resident. I agree with the resident's findings and plan as documented. SUBJECTIVE: OBJECTIVE: ASSESSMENT AND PLAN:
--- NOTE | 2020-04-14 20:52 | PN ---
Teaching Attending Note Name of Resident: Krish Castillo ATTENDING PHYSICIAN STATEMENT I saw and evaluated the patient. I reviewed the resident's note and discussed the case with the resident. I agree with the resident's findings and plan as documented. SUBJECTIVE: Patient seen and examined at bedside, upon further history pt. endorses slipping in bathroom on wet floor, denies LOC. Workup grossly unremarkable for ACS. VSS. OBJECTIVE: Ga comfortable, AAox3, speaking in full sentences HEENT NC/AT, EOMI, neck supple, dry MM, no JVD Chest CTAB, notable kyphosis of spine, no crackles/wheezing CVS s1, S2+, LUPE+ Abd Soft, NT, ND, BS+, no CVA tenderness Ext no LE edema, no calf tenderness, no visible ulcers Neuro CN2-12 grossly intact, 5/5 power UE and LE. (c/o chronic neuropathic burning sensation RLE) Vital Signs - 24 hr 04/06/20 04/06/20 04/06/20 17:16 21:38 23:14 Temperature 98 F Pulse Rate 73 Pulse Rate [ 69 Radial] Respiratory 18 15 Rate Blood Pressure 143/67 Blood Pressure 174/69 H [Left Arm] Blood Pressure [Right Arm] O2 Sat by Pulse 99 99 99 Oximetry (%) 04/07/20 04/07/20 04/07/20 00:22 04:23 06:59 Temperature 98.3 F Pulse Rate Pulse Rate [ 61 66 71 Radial] Respiratory 15 15 16 Rate Blood Pressure Blood Pressure 159/60 145/56 L 163/71 [Left Arm] Blood Pressure [Right Arm] O2 Sat by Pulse 98 97 98 Oximetry (%) 04/07/20 04/07/20 07:23 09:30 Temperature Pulse Rate 73 Pulse Rate [ 74 Radial] Respiratory 19 18 Rate Blood Pressure 163/71 Blood Pressure [Left Arm] Blood Pressure 156/68 [Right Arm] O2 Sat by Pulse 98 Oximetry (%) Laboratory Results - last 24 hr 04/06/20 04/06/20 04/06/20 18:35 18:35 18:35 WBC 9.7 RBC 4.05 Hgb 11.7 Hct 34.8 MCV 85.9 MCH 29.0 MCHC 33.7 RDW 13.2 Plt Count 129 L MPV 10.1 Absolute Neuts (auto) 5.5 Neutrophils % 57.0 Lymphocytes % 27.9 Monocytes % 6.7 Eosinophils % 3.4 Basophils % 5.0 H Nucleated RBC % 0 Platelet Comment PT with INR 11.40 INR 0.97 PTT (Actin FS) 30.2 Sodium 136 Potassium 4.7 Chloride 100 Carbon Dioxide 29 Anion Gap 7 L BUN 14.7 Creatinine 0.7 Est GFR (CKD-EPI)AfAm 96.18 Est GFR (CKD-EPI)NonAf 82.99 POC Glucometer Random Glucose 70 L Hemoglobin A1c % Calcium 8.6 Phosphorus Magnesium Total Bilirubin 0.6 AST 27 ALT 32 Alkaline Phosphatase 107 Creatine Kinase Troponin I < 0.02 C-Reactive Protein < 0.3 Total Protein 7.2 Albumin 3.9 Triglycerides Cholesterol Total LDL Cholesterol HDL Cholesterol TSH 04/06/20 04/07/20 04/07/20 23:24 00:11 07:05 WBC 6.6 RBC 4.42 Hgb 12.7 Hct 37.8 MCV 85.6 MCH 28.7 MCHC 33.6 RDW 13.0 Plt Count 158 D MPV 9.2 Absolute Neuts (auto) 3.5 Neutrophils % 53.0 Lymphocytes % 33.2 Monocytes % 9.7 Eosinophils % 3.1 Basophils % 1.0 Nucleated RBC % 0 Platelet Comment PT with INR INR PTT (Actin FS) Sodium Potassium Chloride Carbon Dioxide Anion Gap BUN Creatinine Est GFR (CKD-EPI)AfAm Est GFR (CKD-EPI)NonAf POC Glucometer 236 Random Glucose Hemoglobin A1c % Calcium Phosphorus Magnesium Total Bilirubin AST ALT Alkaline Phosphatase Creatine Kinase 91 Troponin I < 0.02 C-Reactive Protein Total Protein Albumin Triglycerides Cholesterol Total LDL Cholesterol HDL Cholesterol TSH 04/07/20 04/07/20 04/07/20 07:05 07:05 07:52 WBC RBC Hgb Hct MCV MCH MCHC RDW Plt Count MPV Absolute Neuts (auto) Neutrophils % Lymphocytes % Monocytes % Eosinophils % Basophils % Nucleated RBC % Platelet Comment PT with INR INR PTT (Actin FS) Sodium 136 Potassium 5.0 Chloride 101 Carbon Dioxide 30 Anion Gap 5 L BUN 12.9 Creatinine 0.8 Est GFR (CKD-EPI)AfAm 81.84 Est GFR (CKD-EPI)NonAf 70.61 POC Glucometer 118 Random Glucose 128 H Hemoglobin A1c % 7.6 H Calcium 8.8 Phosphorus 4.2 Magnesium 2.4 Total Bilirubin AST ALT Alkaline Phosphatase Creatine Kinase 96 Troponin I < 0.02 C-Reactive Protein Total Protein Albumin Triglycerides 152 H Cholesterol 118 Total LDL Cholesterol 52 HDL Cholesterol 51 TSH 3.43 04/07/20 12:19 WBC RBC Hgb Hct MCV MCH MCHC RDW Plt Count MPV Absolute Neuts (auto) Neutrophils % Lymphocytes % Monocytes % Eosinophils % Basophils % Nucleated RBC % Platelet Comment PT with INR INR PTT (Actin FS) Sodium Potassium Chloride Carbon Dioxide Anion Gap BUN Creatinine Est GFR (CKD-EPI)AfAm Est GFR (CKD-EPI)NonAf POC Glucometer 191 Random Glucose Hemoglobin A1c % Calcium Phosphorus Magnesium Total Bilirubin AST ALT Alkaline Phosphatase Creatine Kinase Troponin I C-Reactive Protein Total Protein Albumin Triglycerides Cholesterol Total LDL Cholesterol HDL Cholesterol TSH Home Medications Medication Instructions Recorded Ergocalciferol [Vitamin D2] 50,000 unit PO ONCE 04/06/20 Gabapentin 300 mg PO DAILY 04/06/20 Glimepiride 4 mg PO DAILY 04/06/20 Levothyroxine [Synthroid -] 50 mcg PO DAILY 04/06/20 Losartan Potassium 25 mg PO DAILY 04/06/20 Metformin HCl [Glucophage] 1,000 mg PO BID 04/06/20 Simvastatin 20 mg PO DAILY 04/06/20 Current Medications Generic Name Dose Route Start Last Admin Trade Name Freq PRN Reason Stop Dose Admin Aspirin 325 mg 04/07/20 10:00 04/07/20 09:35 Asa - PO 325 mg DAILY YOCASTA Administration Atorvastatin Calcium 10 mg 04/06/20 22:00 04/06/20 22:07 Lipitor - PO 10 mg HS YOCASTA Administration Gabapentin 300 mg 04/07/20 10:00 04/07/20 09:38 Neurontin - PO 300 mg DAILY YOCASTA Administration Heparin Sodium (Porcine) 5,000 unit 04/06/20 22:00 04/07/20 09:38 Heparin - SQ 5,000 unit BID YOCASTA Administration Sodium Chloride 500 mls @ 500 mls/hr 04/07/20 12:13 Normal Saline - IV 04/07/20 13:12 ASDIR STA Insulin Aspart 1 vial 04/07/20 11:00 04/07/20 12:26 Novolog Vial Sliding Scale - SQ 2 units ACHS YOCASTA Administration Protocol Levothyroxine Sodium 50 mcg 04/07/20 07:00 04/07/20 06:47 Synthroid - PO 50 mcg ACBK YOCASTA Administration Losartan Potassium 25 mg 04/07/20 10:00 04/07/20 09:37 Cozaar - PO 25 mg DAILY YOCASTA Administration Nitroglycerin 0.4 mg 04/06/20 21:23 Nitrostat - SL Q5M PRN FOR CHEST PAIN ASSESSMENT AND PLAN: 79 F Mechanical fall (denies syncopal symptoms) HTN HLD Chronic neuropathy Osteoporosis Hypothyroidism T2DM Plan: PT training, middle school counselor on clearing out rugs/bathroom objects/clean floors etc. Echo/carotid doppler/A1c/TSH/lipids/RPR/B12 unremarkable DC home with PMD follow up
== END 2020-04-08 14:17 | disposition home or self-care (01) | DRG 313 ==
LOC: JER 17:09 → JERBED 21:34 → J4W 04-07 20:19
PROVIDERS: ADMIT Internal Medicine
DX: R07.89 Other chest pain (principal); E11.9 Type 2 diabetes mellitus without complications; I10 Essential (primary) hypertension; E03.9 Hypothyroidism, unspecified; E78.5 Hyperlipidemia, unspecified; G62.9 Polyneuropathy, unspecified; M81.0 Age-related osteoporosis without current pathological fracture
CPT/HCPCS: 36415; 70450-TC; 71045-TC-FY; 71046-TC-FY; 72128-TC; 73523-TC-FY; 80048; 80053; 80061; 82550; 82962; 83036; 83721; 83735; 84100; 84443; 84484; 85025; 85027; 85610; 85730; 86140; 86780; 93005; 93010; 93306-TC; 93880-TC; 97116-GP; 97161-GP; 99285-25; J0131; J1644; U0003

== ENCOUNTER 2023-11-09 10:41 | Emergency (ER) | payer OTHER ==
[2023-11-09 11:05] VITALS: PULSE 77; BMI 25.9
[2023-11-09 11:50] LABS: EOS % 1.6 % (0-4.5); HEMATOCRIT 36.1 % (32.4-45.2); HEMOGLOBIN 11.8 GM/dL (10.7-15.3); MCH 28.6 pg (25.7-33.7); MCHC 32.6 g/dl (32.0-36.0); MEAN CELL VOLUME 87.8 fl (80-96); MEAN PLT VOLUME 8.4 fl (7.5-11.1); MONO % 8.5 % (3.8-10.2); NEUT % 50.9 % (42.8-82.8); PLATELET COUNT 194 10^3/uL (134-434); RBC 4.11 M/mm3 (3.60-5.2); RDW 12.8 % (11.6-15.6); WHITE BLOOD COUNT 5.2 K/mm3 (4.0-10.0)
[2023-11-09 12:00] LABS: INR 1.03 (0.83-1.09)
[2023-11-09 12:03] LABS: ACTIVATED PTT 32.4 SECONDS (25.2-36.5)
[2023-11-09 12:07] LABS: POTASSIUM 4.9 mmol/L (3.5-5.1)
[2023-11-09 12:09] LABS: ALBUMIN 3.3 g/dl (3.4-5.0); BLOOD UREA NITROGEN 22.9 mg/dL (7-18); CALCIUM 8.9 mg/dL (8.5-10.1); MAGNESIUM 2.1 mg/dL (1.8-2.4)
[2023-11-09 12:12] LABS: CREATININE 0.8 mg/dL (0.55-1.3)
[2023-11-09 12:14] LABS: BILIRUBIN,TOTAL 0.3 mg/dL (0.2-1); TOT PROT 7.1 g/dl (6.4-8.2)
[2023-11-09] MEDS ORDERED: guaiFENesin 200 MG/10 ML 10 ML UNIT-DOSE CUPS ONE (12:35)
[2023-11-09] MEDS: guaiFENesin 200 MG/10 ML 10 ML UNIT-DOSE CUPS PO ONE (12:39)
[2023-11-09] MEDS: SODIUM CHLORIDE 0.9% 500 ML INFUS.BAG IV ONE (13:28)
[2023-11-09 13:37] VITALS: BP 150/64; RESP 20; TEMP 97.6
== END 2023-11-09 18:08 ==
LOC: JER 10:41
DX: R07.2 Precordial pain (principal); R05.9 Cough, unspecified; R51.9 Headache, unspecified; Z20.822 Contact with and (suspected) exposure to COVID-19
CPT/HCPCS: 0241U-QW; 36415; 71045-TC-FY; 80053; 83735; 84484; 85025; 85610; 85730; 93005; 93010; 99285-25

== ENCOUNTER 2024-04-01 14:17 | Emergency (ER) | payer OTHER ==
[2024-04-01 14:52] VITALS: TEMP 98.2; BMI 26.8
[2024-04-01] MEDS ORDERED: ACETAMINOPHEN INJECTION 100 ML IVPB ONE (15:27)
[2024-04-01] MEDS ORDERED: ONDANSETRON 4 MG/2 ML VIAL ONE (15:27)
[2024-04-01] MEDS: ONDANSETRON 4 MG/2 ML VIAL IVPUSH ONE (15:52)
[2024-04-01] MEDS: ACETAMINOPHEN 1000 MG/100 ML BAG IVPB ONE (15:52)
[2024-04-01 15:56] LABS: BASO % 1.2 % (0-2.0); EOS % 1.9 % (0-4.5); HEMATOCRIT 35.7 % (32.4-45.2); HEMOGLOBIN 12.2 GM/dL (10.7-15.3); LYMPH % 37.5 % (8-40); MCH 29.4 pg (25.7-33.7); MCHC 34.2 g/dl (32.0-36.0); MEAN CELL VOLUME 85.9 fl (80-96); MEAN PLT VOLUME 9.3 fl (7.5-11.1); MONO % 7.7 % (3.8-10.2); NEUT % 51.7 % (42.8-82.8); PLATELET COUNT 162 10^3/uL (134-434); RBC 4.15 M/mm3 (3.60-5.2); RDW 12.8 % (11.6-15.6); WHITE BLOOD COUNT 6.1 K/mm3 (4.0-10.0)
[2024-04-01 16:26] LABS: POTASSIUM 5.6 mmol/L (3.5-5.1)
[2024-04-01 16:28] LABS: ALBUMIN 3.6 g/dl (3.4-5.0); BLOOD UREA NITROGEN 20.1 mg/dL (7-18); CALCIUM 9.2 mg/dL (8.5-10.1)
[2024-04-01 16:31] LABS: CREATININE 0.8 mg/dL (0.55-1.3)
[2024-04-01 16:33] LABS: BILIRUBIN,TOTAL 0.6 mg/dL (0.2-1); TOT PROT 7.8 g/dl (6.4-8.2)
[2024-04-01] MEDS ORDERED: morphine SULFATE 4 MG/ML VIAL ONE (18:11)
[2024-04-01] MEDS: morphine SULFATE 4 MG/ML VIAL IVPUSH ONE (18:25)
[2024-04-01 19:09] LABS: POTASSIUM 4.2 mmol/L (3.5-5.1)
[2024-04-01 19:11] LABS: CALCIUM 9.1 mg/dL (8.5-10.1)
[2024-04-01 19:12] LABS: ALBUMIN 3.5 g/dl (3.4-5.0); BLOOD UREA NITROGEN 18.8 mg/dL (7-18)
[2024-04-01 19:15] LABS: CREATININE 0.7 mg/dL (0.55-1.3)
[2024-04-01 19:16] LABS: BILIRUBIN,TOTAL 0.4 mg/dL (0.2-1)
[2024-04-01 19:25] LABS: EPI CELLS 2 /uL (0-25.1); HYALINE CASTS 0 /uL (0-3.1); PH,URINE 6.5 (5.0-8.0); URINE APPEARANCE CLEAR; URINE BACTERIA 9 /uL (0-1359); URINE BILIRUBIN NEGATIVE (NEGATIVE); URINE COLOR YELLOW; URINE GLUCOSE (UA) NEGATIVE (NEGATIVE); URINE KETONE NEGATIVE (NEGATIVE); URINE LEUK ESTERASE NEGATIVE (NEGATIVE); URINE NITRITE NEGATIVE (NEGATIVE); URINE PROTEIN 1+ (NEGATIVE); URINE RBC 10 /uL (0-23.9); URINE UROBILINOGEN 0.2 mg/dL (0.2-1.0); URINE WBC 2 /uL (0-25.8)
[2024-04-01 19:52] VITALS: BP 154/68; PULSE 92; RESP 18
[2024-04-01] MEDS: SODIUM CHLORIDE 0.9% 500 ML INFUS.BAG IV ONE (20:13)
== END 2024-04-01 21:29 | disposition home or self-care (01) ==
LOC: JER 14:17
PROC: 3E033NZ Introduction of Analgesics, Hypnotics, Sedatives into Peripheral Vein, Percutaneous Approach (ICD-10-PCS; principal; 2024-04-01)
PROC: 3E033NZ Introduction of Analgesics, Hypnotics, Sedatives into Peripheral Vein, Percutaneous Approach (ICD-10-PCS; 2024-04-01)
PROC: 3E033GC Introduction of Other Therapeutic Substance into Peripheral Vein, Percutaneous Approach (ICD-10-PCS; 2024-04-01)
DX: R10.33 Periumbilical pain (principal); R10.13 Epigastric pain; R11.2 Nausea with vomiting, unspecified
CPT/HCPCS: 36415; 71045-TC-FY; 74177-TC; 80053; 81003; 83690; 84484; 85025; 87086; 93005; 93010; 99285-25; J0131; Q9967

== ENCOUNTER 2025-01-01 15:20 | Inpatient (IN) | payer OTHER ==
[2025-01-01 15:56] VITALS: BMI 29.2
[2025-01-01 17:08] LABS: ABSOLUTE IMMATURE GRANULOCYTES 0.02 x10^3/uL (0.0-0.031); BASOPHILS # 0.06 x10^3/uL (0.01-0.08); EOSINOPHIL % 1.6 % (0.7-5.8); EOSINOPHILS # 0.11 x10^3/uL (0.04-0.36); HEMOGLOBIN 11.6 g/dL (11.2-15.7); MCHC 32.2 g/dl (32.2-35.5); MEAN CELL VOLUME 89.8 fl (79.4-94.8); MEAN PLT VOLUME 10.6 fl (9.4-12.3); MONOCYTE # 0.77 x10^3/uL (0.24-0.86); MONOCYTE % 11.1 % (4.7-12.5); PLATELET COUNT 159 x10^3/uL (182-369); RDW 12.2 % (12.5-17.0)
[2025-01-01 17:31] LABS: POTASSIUM 4.2 mmol/L (3.5-5.1)
[2025-01-01 17:33] LABS: CALCIUM 9.1 mg/dL (8.5-10.1); INR 1.11 (0.83-1.09); PROTHROMBIN TIME (PATIENT) 12.2 SEC (9.7-13.0)
[2025-01-01 17:34] LABS: ALBUMIN 3.3 g/dl (3.4-5.0); BLOOD UREA NITROGEN 19.3 mg/dL (7-18); MAGNESIUM 2.4 mg/dL (1.8-2.4)
[2025-01-01 17:35] LABS: ACTIVATED PTT 32.6 SECONDS (25.2-36.5)
[2025-01-01 17:37] LABS: CREATININE 0.9 mg/dL (0.55-1.3)
[2025-01-01 17:38] LABS: BILIRUBIN,TOTAL 0.5 mg/dL (0.2-1); TOT PROT 7.1 g/dl (6.4-8.2)
[2025-01-01] MEDS ORDERED: ALBUTEROL SO4 2.5/IPRATROPIUM 0.5 INH SOL 3 ML VIAL.NEB. NEB PRN (19:39)
[2025-01-01] MEDS ORDERED: BISACODYL 10 MG SUPP.RECT RC SCH (20:30)
[2025-01-01] MEDS ORDERED: POLYETHYLENE GLYCOL (HEALTHYLAX) 3350 17 GM PACKET ONE (21:13)
[2025-01-01] MEDS ORDERED: DEXAMETHASONE 4 MG TABLET (FP) ONE (21:13)
[2025-01-01] MEDS: POLYETHYLENE GLYCOL (HEALTHYLAX) 3350 17 GM PACKET PO SCH (21:18)
[2025-01-01] MEDS: DEXAMETHASONE 4 MG TABLET (FP) PO ONE (21:18)
[2025-01-01] MEDS: REMDESIVIR 200 MG in SODIUM CHLORIDE 250 ML IVPB ONE (21:49)
[2025-01-01] MEDS: guaiFENesin/D-METHORPHAN HB 10 ML UNIT-DOSE CUPS PO PRN (23:47)
[2025-01-01] MEDS: GABAPENTIN 300 MG CAPSULE PO SCH (23:48)
[2025-01-01] MEDS: ATORVASTATIN CA 10 MG TABLET (FP) PO SCH (23:48)
[2025-01-01] MEDS: DOCUSATE SODIUM 100 MG CAPSULE (FP) PO SCH (23:49)
[2025-01-01] MEDS: CycloBENZAprine HCL 5 MG TABLET PO SCH (23:49)
[2025-01-01] MEDS: INSULIN GLARGINE (LANTUS) 100 UNITS/ML UNITS SQ SCH (23:49)
[2025-01-01] MEDS: traZODone HCL 50 MG TABLET (FP) PO SCH (23:49)
[2025-01-01] MEDS: INSULIN ASPART SLIDING SCALE (NOVOLOG) 1 VIAL SQ SCH (23:50)
[2025-01-02] MEDS: LEVOTHYROXINE NA 75 MCG TABLET (FP) PO SCH (07:13)
[2025-01-02] MEDS: INSULIN GLARGINE (LANTUS) 100 UNITS/ML UNITS SQ SCH ×2 (07:28→21:42)
[2025-01-02 08:37] LABS: ABSOLUTE IMMATURE GRANULOCYTES 0.02 x10^3/uL (0.0-0.031); BASOPHILS # 0.01 x10^3/uL (0.01-0.08); HEMOGLOBIN 11.9 g/dL (11.2-15.7); MCHC 32.2 g/dl (32.2-35.5); MEAN CELL VOLUME 88.9 fl (79.4-94.8); MEAN PLT VOLUME 11.2 fl (9.4-12.3); MONOCYTE # 0.07 x10^3/uL (0.24-0.86); MONOCYTE % 1.4 % (4.7-12.5); PLATELET COUNT 157 x10^3/uL (182-369); RDW 11.9 % (12.5-17.0)
[2025-01-02 09:19] LABS: POTASSIUM 4.6 mmol/L (3.5-5.1)
[2025-01-02 09:21] LABS: BLOOD UREA NITROGEN 23.5 mg/dL (7-18); CALCIUM 8.8 mg/dL (8.5-10.1); MAGNESIUM 2.5 mg/dL (1.8-2.4)
[2025-01-02 09:25] LABS: CREATININE 0.9 mg/dL (0.55-1.3)
[2025-01-02 09:26] LABS: BILIRUBIN,TOTAL 0.4 mg/dL (0.2-1)
[2025-01-02] MEDS: ENOXAPARIN NA (PORCINE) 40 MG/0.4 ML DISP.SYRIN SQ SCH (09:47)
[2025-01-02] MEDS: amLODIPine BESYLATE 5 MG TABLET (FP) PO SCH (09:48)
[2025-01-02] MEDS: LOSARTAN POTASSIUM 25 MG TABLET PO SCH (09:48)
[2025-01-02] MEDS: REMDESIVIR 100 MG in SODIUM CHLORIDE 250 ML IVPB SCH (09:49)
[2025-01-02] MEDS ORDERED: DEXAMETHASONE 0.5 MG TABLET PO SCH (10:00)
[2025-01-02] MEDS ORDERED: DEXAMETHASONE 4 MG TABLET (FP) PO SCH (11:07)
[2025-01-02] MEDS: DEXAMETHASONE 4 MG TABLET (FP) PO SCH (12:14)
[2025-01-02] MEDS: GABAPENTIN 100 MG CAPSULE PO SCH (13:29)
[2025-01-02 19:07] VITALS: RESP 18
[2025-01-03] MEDS: INSULIN GLARGINE (LANTUS) 100 UNITS/ML UNITS SQ SCH (06:14)
[2025-01-03 11:21] LABS: HEMATOCRIT 34.1 % (34.1-44.9); HEMOGLOBIN 11.6 g/dL (11.2-15.7); MEAN CELL VOLUME 87.7 fl (79.4-94.8); MEAN PLT VOLUME 11.2 fl (9.4-12.3); PLATELET COUNT 175 x10^3/uL (182-369); RDW 12.2 % (12.5-17.0)
[2025-01-03 12:02] LABS: POTASSIUM 4.6 mmol/L (3.5-5.1)
[2025-01-03 12:04] LABS: ALBUMIN 3.1 g/dl (3.4-5.0); BLOOD UREA NITROGEN 36.9 mg/dL (7-18); MAGNESIUM 2.4 mg/dL (1.8-2.4)
[2025-01-03 12:07] LABS: CREATININE 1.1 mg/dL (0.55-1.3)
[2025-01-03 12:09] LABS: BILIRUBIN,TOTAL 0.3 mg/dL (0.2-1); TOT PROT 7.1 g/dl (6.4-8.2)
[2025-01-03 13:39] VITALS: BP 129/64; PULSE 95; TEMP 97.5
== END 2025-01-03 14:16 | DRG 137 ==
LOC: JER 15:20 → JERBED 19:04 → J7W 21:38 → OBSVTOIN 01-02 11:15
PROVIDERS: ADMIT Hospitalist; ATTEND Internal Medicine
PROC: XW033E5 Introduction of Remdesivir Anti-infective into Peripheral Vein, Percutaneous Approach, New Technology Group 5 (ICD-10-PCS; principal; 2025-01-02)
DX: U07.1 COVID-19 (principal); I10 Essential (primary) hypertension; E03.9 Hypothyroidism, unspecified; E78.5 Hyperlipidemia, unspecified; K59.00 Constipation, unspecified; E11.42 Type 2 diabetes mellitus with diabetic polyneuropathy
CPT/HCPCS: 0241U-QW; 36415; 71045-TC-FY; 80053; 82962; 83735; 83880; 84100; 84484; 85025; 85027; 85610; 85730; 93005; 93010; 97116-GP; 97161-GP; 99285-25; G0378; J0248